=== PATIENT | female | born 2000 | race Caucasian/White ===

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

== ENCOUNTER 2021-01-09 10:08 | Day surgery (SDC) | payer OTHER, SELFPAY ==
[2020-08-18 09:47] VITALS: BMI 20.3
[2021-01-09] MEDS: Lactated Ringers 1,000 ML 100 ML IV (10:30)
[2021-01-09 10:36] VITALS: BP 138/85; PULSE 97; RESP 16; TEMP 37; O2SAT 100; BMI 20.5
--- NOTE | 2021-01-09 10:47 | HP_ITS ---
Intake Vital Signs 08/18/20 Height 5 ft 8 in 08/18/20 Weight: 130 lb 08/18/20 BMI 19.8 08/18/20 BP 124/86 H 08/18/20 Blood Pressure Location Lt brachial 08/18/20 Position Sitting 08/18/20 Respiration 16 Intake Visit Reasons: BIRADS 4 LEFT BREAST Chief Complaint: left breast mass Decay Control Operator Required: No Is patient in pain?: No Allergies hydrocodone Adverse Reaction (Intermediate, Verified 08/18/20 09:47) vomiting Medications desogestrel 0.15 mg-ethinyl estradiol 0.03 mg tablet 1 tab PO DAILY 04/11/19 [History Confirmed 08/18/20] PFSH Medical History Polycystic kidney disease (Acute) Surgical History [place] teeth extracted (Acute) Family History Mother Asthma Social History (Updated 08/18/20 @ 10:[address] Garcia Luke MD) pets and animals: Yes sexually active: Yes Smoking Status: Never smoker second hand exposure: No alcohol intake: never substance use type: does not use well-balanced diet: daily or most days frequency: 3-4 times per week seatbelt use: always HPI HPI HPI: AMADOU MOFFETT, is a 20 F who presents to the office today for HPI HPI HPI: AMADOU MOFFETT, is a 20 F who presents to the office today for left breast mass. The patient reports that 2 weeks ago she felt a mass in her left breast. She said it was tender but this has gotten better. She is on her period currently. She has not had any previous breast biopsies and has no immediate family history of breast cancer. No nipple discharge. ROS General General: No weight change or fatigue Breast Breast: Yes left breast lump, breast pain and abnormal US; no nipple discharge Cardio Cardiovascular: No murmur, pacemaker, heart disease, atrial fibrillation, high blood pressure, heart attack, heart stent, palpitations, shortness of breat with exertion or chest pain Psych Psychiatric: No depression or anxiety Resp Respiratory: No shortness of breath, No sleep apnea, No cough, No COPD, No asthma, No emphysema, No wheezing Gastro Gastrointestinal: No abdominal pain, No nausea or vomiting, No diarrhea, No constipation, No blood in stool, No acid reflux, No hemorrhoids, No ulcers, No gallbladder problem, No black,tarry stools Zackery Hematologic: No blood thinners Exam Const General: cooperative Orientation: alert, oriented x3 Chest Breast Palpation: No axillary lymphadenopathy, Yes breast mass lrb: Left, No nipple discharge Resp Effort & Inspection: normal respiratory effort Auscultation: clear to auscultation bilaterally Cardio Rate: regular rate Rhythm: regular rhythm Heart Sounds: no murmurs GI Inspection: non-distended Palpation: soft, nontender Office Procedures Biopsy Provider Documentation The left breast was prepped and draped in usual sterile fashion. Ultrasound was used to localize the mass and an area of the lateral breast was injected with local anesthetic and a small incision was made. A 14-gauge core needle was placed into the breast under direct ultrasound guidance and into the mass and several biopsies of the mass were obtained. Next a small clip was placed into the mass. A Steri-Strip was used to close the incision and a bandage was placed over this. Patient tolerated the procedure well. Biopsy Breast Biopsy: [id number] US Guidance Procedure Time Out Time Out Informed consent given: Yes Consent signed: Yes Time out checklist: patient, procedure, site marked/identified, positioning of patient, supplies available, allergies confirmed, team agrees on procedure Time out staff in room: Yes Time out verified: Yes Time out date: 08/18/20 Time out time: 09:45 Assessment & Plan Problems 1. Left breast mass N63.20 Plan Patient has left breast mass on ultrasound. I discussed the risks of bleeding and infection and then performed a bedside core needle biopsy in the office. Patient tolerated the procedure well and clip was placed. I will call the patient with pathology when it is available and if it is benign I plan on repeating imaging in 6 months. Garcia Luke MD Pager: [facility] [address] [place] [address], [address] [place] [address] Office: Orders Orders: Biopsy Today N63.20 Coding Level of Care Code Attention Roman Diagnoses Left breast mass N63.20 Additional Codes Biopsy - Breast Biopsy: 55543 US Guidance (35945)
[2021-01-09 11:35] LABS: Internal QC Validated? YES +Cl - CLEAR BKGD; Pregnancy, Urine Negative Negative
--- NOTE | 2021-01-09 11:46 | PCM.HP.STD ---
Problem List (1) Fibroadenoma of left breast Status: Acute (2) Breast pain, left Status: Acute History of Present Illness Date of Admission: 01/09/21 The patient is a 20 year old F who was been having left breast pain especially with menstrual cycles. She had found a mass about 6 months ago and a biopsy confirmed fibroadenoma. She says her last 6 months is becoming more more painful and she would like it removed. Past Medical History Medical History: Medical History (Last Reviewed 08/18/20 @ 09:45 by Karmen Wallace) Polycystic kidney disease Q61.3 Allergies hydrocodone Adverse Reaction (Intermediate, Verified 08/18/20 09:47) vomiting Home Medications: Ambulatory Orders Medication Instructions Recorded desogestrel 0.15 mg-ethinyl 1 tab PO DAILY 04/11/19 estradiol 0.03 mg tablet Multivitamin 1 ea PO DAILY 01/05/21 Surgical History: Surgical History (Last Reviewed 08/18/20 @ 09:45 by Karmen Wallace) [place] teeth extracted K08.409 Smoking Status: Never smoker Review of Systems Constitutional: Denies: Anorexia, Fever HEENT: Denies: Difficulty Swallowing Cardiovascular: Denies: Chest Pain Respiratory: Denies: Cough Gastrointestinal: Denies: Abdominal Pain Musculoskeletal: Reports: - - Breast pain in the left VTE Information - Inpt Only VTE Present on Admission: No VTE Mechan Device Prophylaxis: SCD's - Physical Exam Vitals/I&O's: Vital Signs Temp Pulse Resp BP Pulse Ox 98.6 F 97 16 138/85 H 100 01/09/21 10:36 01/09/21 10:36 01/09/21 10:36 01/09/21 10:36 01/09/21 10:36 Oxygen Delivery Method Room Air Weight: 134 lb 11.239 oz Body Mass Index (BMI) 20.5 General: Alert, Oriented x3 Neck: No JVD Abdomen: Soft, Non Tender, Non-Distended Musculoskeletal: - - Left breast mass lateral to the nipple Microbiology Past 72 Hours 01/08/21 10:00 Interface Orders SARS-CoV-2 Antigen (Rapid) - Final Laboratory Results 01/09/21 11:10: Urine Test Negative Current Medications Cefazolin Sodium 2 gm/ Sodium (Chloride) 110 mls @ 150 mls/hr IV PREOP ONE Stop: 01/09/21 13:33 Lactated Ringer's () 1,000 mls @ 100 mls/hr IV .Q10H DG Last Admin: 01/09/21 10:30 Dose: 100 mls/hr Documented by: Assessment/Plan All Active Problems (Last Reviewed 08/18/20 @ 09:45 by Karmen Wallace) Fibroadenoma of left breast (Acute) Breast pain, left (Acute) 20-year-old female with fibroadenoma of left breast with breast pain The patient has been having cyclical breast pain in the left breast where she has a biopsy-proven fibroadenoma. She would like this removed it is causing her a lot of discomfort. I discussed surgery with her and excision. I discussed the risks including but not limited to bleeding, infection, hematoma or breast disfiguration. Patient understands risks and willing to proceed. Garcia Luke MD Pager: [facility] [address] [place] [address], [address] [place] [address] Office:
[2021-01-09] MEDS: Cefazolin 2 GM in 0.9% Normal Saline 100 ML IV (12:05)
[2021-01-09] MEDS: Bupivacaine Mpf 0.5% 30 ML VIAL (12:33)
--- NOTE | 2021-01-09 12:43 | PCM.OPRPT ---
Problem List (1) Fibroadenoma of left breast Status: Acute (2) Breast pain, left Status: Acute Report of Operation Date of Procedure: 01/09/21 Pre-Operative Diagnosis: Left breast painful fibroadenoma Post-Operative Diagnosis: Same Surgery/Procedure Performed:: Excision of left breast mass Specimen's removed: Left breast mass Description of Procedure: Patient was brought back to the operating room and general anesthesia was induced. The left breast was prepped and draped in usual sterile fashion. Ultrasound was used to localize the mass and the area just overlying this mass was marked. An incision was made with a scalpel and deepened to the mass. The mass was excised using electrocautery dissection. The mass was sent for pathology. The cavity was irrigated and suctioned dry and hemostasis was obtained using electrocautery. The incision was injected with local anesthetic and closed with interrupted 3-0 Vicryl sutures as well as a running 4-0 Monocryl suture and glue. Patient tolerated the procedure was brought to PACU in stable condition. - Admit VTE Documentation VTE Mechan Device Prophylaxis: SCD's
--- NOTE | 2021-01-09 12:46 | PCM.DC.BS ---
Discharge Diet: No Restrictions Discharge Activity: May Not Drive - for 2-3 days or while taking narcotic pain meds. May shower in (days): 1 Lifting Restrictions: 10 pounds for 1 week. Call your doctor if your incision/area has: Continuous Slow Oozing, Sudden Increased Bleeding, Increased Pain/ Swelling, Increased Redness, Foul Smelling Discharge Call your doctor if you observe: Fever of 101 or Higher Suture Line Care: Avoid Pulling/Pushing, Avoid Pinching/Bending Cleanse incision/area with: Soap & Water Additional Dressing/Incision Instructions:: Remove bulky dressing tomorrow. May leave any opsite dressing for 3-4 days. Keep dressing in place until your follow-up appointment. Instructions: ED Chest Pain, Noncardiac Allergies/Adverse Reactions: Allergies hydrocodone Adverse Reaction (Intermediate, Verified 08/18/20 09:47) vomiting Medications to take at Discharge desogestrel 0.15 mg-ethinyl estradiol 0.03 mg tablet 1 tab PO DAILY 04/11/19 Multivitamin 1 ea PO DAILY 01/05/21 Oxycodone HCl/Acetaminophen [Percocet 5-325 mg Tablet] 1 tab PO Q6H PRN PRN 3 Days #10 tab 01/09/21 The following prescriptions were given: Oxycodone HCl/Acetaminophen [Percocet 5-325 mg Tablet] 1 tab PO Q6H PRN PRN 3 Days #10 tab PRN Reason: Pain Score 4-10/10 Transmission Status: Sent to [facility] Primary Care Physician: Margie Womack MD [Primary Care Provider] - Please Follow Up With: Garcia Luke MD When: Please call to schedule 2 week follow up appointment. [phone]
[2021-01-09 12:48] VITALS: BP 110/62; BP 138/85; PULSE 65; RESP 16; TEMP 36.5; O2SAT 100
--- NOTE | 2021-01-09 12:50 | BREAST_PTH ---
PATIENT: AMADOU MOFFETT LOC: [facility] [place] U#:[id number] AGE/SX: 20/F ROOM: RE01/09/[address]: Dr. Garcia Luke MD : 2000 BED: DIS: 01/09/2021 SPEC #: [id number] RECD: 01/09/21 12:56 STATUS: ANJELICA REQ #: [id number] ALBER: 01/09/21 12:[address]: Garcia Luke DEPT: SURGICAL PATHOLOGY RECD BY: Missy Faith ENTERED: 01/12/21 07:44 SP TYPE: BREAST OTHR DR: Dr. Margie Womack MD Tissues: Breast, NOS Procedures: Surgery Specimen Level IV HEADER OPERATION: Excision of fibroadenoma PRE-OP DIAGNOSIS: Fibroadenoma of left breast; left breast pain TISSUE SUBMITTED: Left breast fibroadenoma MICROSCOPIC DIAGNOSIS Left breast fibroadenoma, excision: Fibroadenoma. See comment. AM:rg 01/13/2021 COMMENT The lesion is completely excised in the planes examined. MICROSCOPIC DESCRIPTION Slides are reviewed. GROSS DESCRIPTION Received in fixative is one container labeled with the patient's name and designated left breast fibroadenoma. The specimen consists of a rubbery fragment of domínguez-white soft tissue measuring in aggregate 3.5 x 3 x 1.7 cm. The specimen is inked and serially sectioned to reveal homogenous light domínguez cut surfaces. The specimen is totally submitted in one cassette. / AM:samara 01/12/21 TC:1 CPT: 13666
[2021-01-09 13:00] VITALS: BP 122/81; BP 138/85; PULSE 66; RESP 16; O2SAT 100
[2021-01-09 13:15] VITALS: BP 110/74; BP 138/85; PULSE 61; RESP 16; O2SAT 100
[2021-01-09 13:30] VITALS: BP 113/83; BP 138/85; PULSE 66; RESP 16; TEMP 36.6; O2SAT 100
[2021-01-09 14:07] VITALS: BP 138/85
== END 2021-01-09 14:11 | disposition home or self-care (01) ==
LOC: SDC 10:09 → AC 10:09
PROVIDERS: Anesthesiology; PCP Family Medicine; Referring Provider Surgery; Visit Provider Surgery
PROC: (CPT 19083; principal; 2021-01-09 12:35)
DX: D24.2 Benign neoplasm of left breast (principal); Z20.822 Contact with and (suspected) exposure to COVID-19
CPT/HCPCS: 00400; 19120; 81025; 87426; 88305; C9803; J7120; J2405

== ENCOUNTER → 2021-04-20 10:40 | Outpatient (CLI) | payer OTHER, SELFPAY ==
[2021-04-20 11:32] LABS: Protein:Creat Ratio 203 mg/g CRE (0-200)
[2021-04-20 11:54] LABS: Anion Gap 6 (5-15); BUN 12 mg/dL (7-18); BUN/Creat Ratio 15.6 RATIO (10-20); Calcium,Total 9.3 mg/dL (8.5-10.1); Chloride 105 mmol/L (98-107); Creatinine, Serum 0.77 mg/dL (0.55-1.02); EST Glomerular Filtration Rate 102 mL/min (>60); Est Glom Filt Rate - Afr Amer 123 mL/min (>60); Glucose 80 mg/dL (74-106); Potassium 3.6 mmol/L (3.5-5.1); Sodium Level 137 mmol/L (136-145)
== END ==
PROVIDERS: PCP Family Medicine; Visit Provider Family Medicine
DX: Q61.3 Polycystic kidney, unspecified (principal)
CPT/HCPCS: 36415; 80048; 82570; 84156

== ENCOUNTER → 2021-11-18 11:18 | Outpatient (CLI) | payer OTHER, SELFPAY ==
[2021-11-18 12:54] LABS: Albumin, Serum 3.6 g/dL (3.2-5.0); BUN 9 mg/dL (7-18); Calcium,Total 9.1 mg/dL (8.5-10.1); Chloride 104 mmol/L (98-107); Creatinine, Serum 0.75 mg/dL (0.55-1.02); EST Glomerular Filtration Rate 104 mL/min (>60); Est Glom Filt Rate - Afr Amer 126 mL/min (>60); Glucose 84 mg/dL (74-106); Phosphorus 3.2 mg/dL (2.5-4.9); Potassium 3.7 mmol/L (3.5-5.1); Sodium Level 139 mmol/L (136-145)
== END ==
PROVIDERS: PCP Family Medicine; Visit Provider Internal Medicine Nephrology
DX: Q61.3 Polycystic kidney, unspecified (principal)
CPT/HCPCS: 36415; 80069

== ENCOUNTER 2021-11-25 17:22 | Emergency (ER) | payer OTHER, SELFPAY ==
[2021-11-25 17:22] VITALS: BP 128/106; PULSE 133; RESP 18; TEMP 36.2; O2SAT 100; BMI 21.2
--- NOTE | 2021-11-25 18:15 | CT_ITS ---
STUDY: CT Abdomen And Pelvis W/O Contrast Injection 11/25/2021 7:36 PM REASON FOR EXAM: Female, 21 years old. Technologist Notes POSSIBLE GI BLEED, COFFE GROUND EMISIS, HX PKD, FRIEDMAN Pain TECHNIQUE: Transaxial images were obtained without oral contrast, and without intravenous contrast. Individualized dose optimization techniques were used for this CT. COMPARISON: None. FINDINGS: The visualized lung bases are unremarkable. The visualized portions of the heart are within normal limits. Normal liver. Normal gallbladder and extrahepatic biliary system. Normal spleen. Normal pancreas. Normal bilateral adrenal glands. Non obstructive 1 to 2 mm right renal parenchymal stones. There are hypodensities in both kidneys. These are consistent for cysts. Due to their multiplicity space suggests polycystic kidney disease. Surveillance is recommended. Non obstructive 1 to 2 mm left renal parenchymal stones. Normal visualized stomach. Normal small intestine. Stool throughout the colon. There is non-visualization of the appendix. There are no acute findings of the abdominal aorta. Normal inferior vena cava. Subcentimeter mesenteric lymph nodes. Normal urinary bladder. Normal visualized uterus. There is an umbilical hernia containing fat. Normal osseous structures. IMPRESSION: (NOT LISTED IN ORDER OF SIGNIFICANCE) There are hypodensities in both kidneys. These are consistent for cysts. Due to their multiplicity space suggests polycystic kidney disease. Surveillance is recommended. Nonobstructive bilateral renal stones. Other findings as above. Electronically Signed: Brian Schulz MD at 19:39 EST , Service support , CT/Abdomen/Pelvis without Cont
--- NOTE | 2021-11-25 18:15 | EDS_ITS ---
HPI HPI - GI History of Present Illness Chief Complaint: GI Bleed Detail of Chief Complaint: Vomiting and diarrhea Informant: patient Narrative Narrative: Patient presents to the emergency department with vomiting and diarrhea that started around 5 AM. Patient states that she threw up 4 times total today and 3 of the times there was black-colored vomitus. Patient also has had 2 episodes of stools the first of which was loose and the second was watery. She denies black tarry stools. She denies blood in her stool. She denies sick contacts. Patient took a Covid test at home at noon today and it was negative. Patient has been vaccinated against Covid and has had her booster. She is also had her flu shot. Patient has history of pots and states that her heart rate today has been up to 150 where her normal resting heart rates about 115. Prior similar symptoms: No PFSH PFSH Medical History (Updated 11/25/21 @ 20:[address] Jordan Adair DO) Fibroadenoma of left breast Polycystic kidney disease Home Medications desogestrel 0.15 mg-ethinyl estradiol 0.03 mg tablet 1 tab PO DAILY 04/11/19 [History Last Taken 01/08/21] multivitamin 1 ea PO DAILY 01/05/21 [History Last Taken Unknown] lansoprazole [Prevacid] 30 mg PO DAILY #14 cap 11/25/21 [Rx Last Taken Unknown] ondansetron 4 mg PO Q8H PRN PRN #10 tab 11/25/21 [Rx Last Taken Unknown] Allergy/AdvReac Type Severity Reaction Status Date / Time hydrocodone AdvReac Intermediate vomiting Verified 11/25/21 17:25 Family History Mother Asthma Surgical History (Updated 01/26/21 @ 09:14 by Karmen Wallace) S/P breast biopsy, left [place] teeth extracted Social History (Updated 01/26/21 @ 10:[address] Garcia Luke MD) pets and animals: Yes sexually active: Yes Smoking Status: Never smoker second hand exposure: No alcohol intake: never substance use type: does not use well-balanced diet: daily or most days frequency: 3-4 times per week seatbelt use: always ROS ROS ED Constitutional Constitutional ED: Reports systems reviewed and no addt'l complaints, except as documented; Denies body ache(s), change in weight or chills Eyes Eyes: Denies acute decrease in peripheral vision, change in vision, double vision or loss of vision ENT ENT ED: Reports none; Denies ear pain, lip swelling, loss taste/smell, neck pain, otalgia or sore throat Cardiovascular Cardiovascular: Reports none; Denies abdominal pain, chest pain with activity, leg edema, lightheadedness, palpitations, rapid heart rate or syncope Respiratory/Chest Respiratory/Chest: Reports none; Denies change in mental status, dry cough, dyspnea, hemoptysis, shortness of breath at rest or shortness of breath with exertion Gastrointestinal Gastrointestinal: Reports none, abdominal pain, diarrhea, nausea, vomiting and other Details: Coffee ground emesis ; Denies change in stool character, hematemesis, hematochezia, melena or rectal bleeding Genitourinary Genitourinary ED: Reports none; Denies abdominal discomfort, anuria, dysuria, genital pain or polyuria Musculoskeletal Musculoskeletal: Reports none; Denies arthralgias, back pain, difficulty walking, extremity pain, muscle weakness or myalgias Integumentary Reports none; Denies abscess or rash Neurologic Neurologic: Reports none; Denies abnormal gait, confusion, focal weakness, frequent falls, headache(s), loss of vision, numbness, paresthesias, radicular pain, vertigo or weakness Psychiatric Psychiatric: Reports systems reviewed and no addt'l complaints, except as documented and none; Denies behavioral changes, confusion, difficulty concentrating, hallucinations, suicidal ideation, tactile hallucinations or visual hallucinations Endocrine Endocrinology: Denies none, cold intolerance, excessive sweating, fatigue or heat intolerance Hematologic/Lymphatic Hematologic/Lymphatic: Reports none; Denies anemia, easy bleeding or easy bruising Allergic/Immunologic Allergic/Immunologic ED: Denies as per HPI, none, lip swelling, mouth swelling, throat swelling, tongue swelling or hives EXAM Physical Exam Const Vital Signs: 11/25/21 17:22 11/25/21 18:52 Temperature 97.2 F L Temperature Source Temporal Pulse Rate 133 H Pulse Rate [Lying] 100 Pulse Rate [Sitting] 100 Pulse Rate [Standing] 130 H Respiratory Rate 18 Blood Pressure 128/106 H Blood Pressure [Lying] 123/82 H Blood Pressure [Sitting] 118/86 H Blood Pressure [Standing] 124/95 H Blood Pressure Mean 113 Blood Pressure Mean [Lying] 95 Blood Pressure Mean [Sitting] 96 Blood Pressure Mean [Standing] 104 Pulse Ox 100 Oxygen Delivery Method Room Air Positive well nourished and well developed General Appearance ED: well developed and NAD HEENT Reports TM's clear and moist mucous membranes normocephalic and atraumatic; Negative for trauma or tenderness Tympanic Membrane ED: Yes TM's clear Eyes PERRL and EOMs intact bilaterally General Eye ED: Negative for pale conjunctiva or scleral icterus Neck no lymphadenopathy, supple and no JVD General: Negative for tenderness Chest Wall inspection of chest normal and palpation of chest normal Chest: Negative for tenderness Resp normal respiratory effort and clear to auscultation bilaterally Effort and Inspection: Negative for respiratory distress or pain with movement Auscultation: Negative for rhonchi, wheezes or diminished lung sounds Cardio regular rate, regular rhythm, S1 normal heart sound, S2 normal heart sound and no murmurs Peripheral Pulses: pulses 2+ throughout GI normal to inspection, nondistended, normoactive bowel sounds, soft to palpation, non-distended and no masses GI Narrative: Mild diffuse tenderness on exam. There is no rebound, rigidity, or peritoneal signs. Back/Spine no CVA tenderness and no thoracic nor lumbar tenderness Extremity normal to inspection General Extremety ED: Negative for edema General Extremity: Negative for edema Neuro oriented x3, CN's II-XII intact bilaterally, no sensory deficits noted and gait normal Sensorium / Orientation: awake, alert, oriented to person, oriented to place and oriented to time Motor Exam: strength 5/5 throughout and strength abnormal Psych mental status grossly normal Skin no rashes or lesions noted and no wounds MDM MDM MDM Narrative Medical decision making narrative: IV line established. Patient given Protonix 80 mg IV bolus. Patient was given Zofran and her nausea resolved. She is had no further vomiting. Lab work-up was unremarkable. Her BUN was normal. CT scan of the pelvis showed polycystic kidney disease which she knows she has. No other significant abnormalities found on CT. Patient's orthostatic vital signs were negative. At this point I do not feel any further interventions indicated. I will send her home with a prescription for Zofran and Prevacid. Patient will be given referral to GI on-call Dr. Squires. She is advised to avoid NSAIDs. Patient to return if hematemesis, black tarry stools, severe abdominal pain, or condition should worsen anyway. Lab Data Attestation: I reviewed the patient's lab results. Labs: Laboratory Results - last 24 hr 11/25/21 11/25/21 11/25/21 18:30 18:30 18:30 WBC 10.2 RBC 5.57 H Hgb 15.4 H Hct 44.8 MCV 80.4 L MCH 27.6 MCHC 34.4 RDW Std Deviation 34.9 L RDW Coeff of Keri 11.9 Plt Count 204 MPV 10.7 Immature Gran % (Auto) 0.200 Neut % (Auto) 90.4 H Lymph % (Auto) 6.2 L Dougherty % (Auto) 2.9 Eos % (Auto) 0.1 Baso % (Auto) 0.2 Absolute Neuts (auto) 9.2 H Absolute Lymphs (auto) 0.63 L Nucleated RBC % 0 Sodium 137 Potassium 3.9 Chloride 105 Carbon Dioxide 21.0 Anion Gap 11 BUN 15 Creatinine 0.87 Estim Creat Clear Calc 103.41 Est GFR (MDRD) Af Amer 106 Est GFR (MDRD) Non-Af 88 BUN/Creatinine Ratio 17.2 Glucose 92 Calcium 9.9 Total Bilirubin 0.90 AST 23 ALT 30 Alkaline Phosphatase 69 Total Protein 8.3 H Albumin 3.9 Globulin 4.4 H Albumin/Globulin Ratio 0.9 Serum , Qual NEGATIVE Urine Color Urine Clarity Urine pH Ur Specific [place] Urine Protein Urine Glucose (UA) Urine Ketones Urine Occult Blood Urine Nitrite Urine Bilirubin Urine Urobilinogen Ur Leukocyte Esterase Urine RBC Urine WBC Ur Squamous Epith Cells Urine Bacteria Urine Mucus 11/25/21 19:00 WBC RBC Hgb Hct MCV MCH MCHC RDW Std Deviation RDW Coeff of Keri Plt Count MPV Immature Gran % (Auto) Neut % (Auto) Lymph % (Auto) Dougherty % (Auto) Eos % (Auto) Baso % (Auto) Absolute Neuts (auto) Absolute Lymphs (auto) Nucleated RBC % Sodium Potassium Chloride Carbon Dioxide Anion Gap BUN Creatinine Estim Creat Clear Calc Est GFR (MDRD) Af Amer Est GFR (MDRD) Non-Af BUN/Creatinine Ratio Glucose Calcium Total Bilirubin AST ALT Alkaline Phosphatase Total Protein Albumin Globulin Albumin/Globulin Ratio Serum , Qual Urine Color Yellow Urine Clarity Cloudy Urine pH 6.0 Ur Specific [place] 1.020 Urine Protein 30 H Urine Glucose (UA) Normal Urine Ketones 150 A* Urine Occult Blood Negative Urine Nitrite Negative Urine Bilirubin 1 H Urine Urobilinogen Normal Ur Leukocyte Esterase 100 H Urine RBC 0 SEEN Urine WBC 5-10 SEEN Ur Squamous Epith Cells 0-5 SEEN Urine Bacteria 1+ Urine Mucus 0 SEEN Radiography Diagnostic Testing: Clinical Impression(s) from Imaging Studies Abdomen/Pelvis CT 11/25/21 18:15 Discharge Plan Triage Chief Complaint: GI Bleed ED Provider: Jordan Adair Dx/Rx/DC Orders Clinical Impression: Viral gastroenteritis Instructions: Viral Gastroenteritis Prescriptions: New ondansetron [ondansetron] 4 MG tablet 4 mg PO Q8H PRN PRN (Reason: Nausea) Qty: 10 RF: 0 lansoprazole [Prevacid] 30 mg capsule,delayed release(DR/EC) 30 mg PO DAILY Qty: 14 RF: 0 No Action desogestrel-ethinyl estradiol [Apri] 0.15-0.03 mg tablet 1 tab PO DAILY RF: 0 multivitamin 1 EACH tablet 1 ea PO DAILY RF: 0 Primary Care Provider: Margie Womack Referrals: Margie Womack MD [Primary Care Provider] - Duc Squires DO [STAFF PHYSICIAN] - As Needed Disposition Disposition: Home, Self Care
[2021-11-25] MEDS: 0.9% Normal Saline 1,000 ML 1000 ML IV (18:29)
[2021-11-25] MEDS: Ondansetron 4 MG/2 ML Vial IV (18:29)
[2021-11-25 18:43] LABS: Absolute Lymphocyte Count 0.63 X10^3/uL (0.83-4.51); Absolute Neutrophil Count 9.2 X10^3/uL (2.0-7.7); Basophil# 0.02 X10^3/uL; Basophil% 0.2 % (0-1); Eosinophil# 0.01 X10^3/uL; Eosinophils% 0.1 % (0-5); Hematocrit 44.8 % (37-47); Hemoglobin 15.4 g/dL (12.0-15.0); Lymphocyte # 0.63 X10^3/ul (0.83-4.51); Lymphocyte % 6.2 % (19-41); Mean Corp Hgb Conc 34.4 g/dL (32-36); Mean Corpuscular Hgb 27.6 pg (27.0-32.0); Mean Corpuscular Volume 80.4 fL (81-99); Mean Platelet Vol. 10.7 fl (6.2-12.0); Monocyte% 2.9 % (0-10); NRBC Flagged by Analyzer 0 % (0-5); Neutrophil # 9.21 X10^3/uL (2.7-7.7); Neutrophil % 90.4 % (47-70); Platelet Count 204 K/mm3 (150-450); RBC Distribution Width CV 11.9 % (11.6-14.6); RBC Distribution Width SD 34.9 fl (35.1-43.9); Red Blood Count 5.57 M/mm3 (4.2-5.4); White Blood Count 10.2 K/mm3 (4.4-11.0)
[2021-11-25 18:47] LABS: Internal QC Validated? YES +Cl - CLEAR BKGD; Pregnancy, Serum, hCG Quali. NEGATIVE Negative
[2021-11-25 18:52] VITALS: BP 118/86; BP 123/82; BP 124/95; PULSE 100; PULSE 130
[2021-11-25 18:54] LABS: ALB/GLOB Ratio 0.9 RATIO (0.9-2.4); AST(SGOT) 23 U/L (15-37); Alanine Aminotransfer ALT/SGPT 30 U/L (13-56); Albumin, Serum 3.9 g/dL (3.2-5.0); Alkaline Phosphatase 69 U/L (45-117); Anion Gap 11 (5-15); BUN 15 mg/dL (7-18); BUN/Creat Ratio 17.2 RATIO (10-20); Calcium,Total 9.9 mg/dL (8.5-10.1); Chloride 105 mmol/L (98-107); Creatinine, Serum 0.87 mg/dL (0.55-1.02); EST Glomerular Filtration Rate 88 mL/min (>60); Est Glom Filt Rate - Afr Amer 106 mL/min (>60); Estimated Creatinine Clearance 103.41 ml/min; Globulin 4.4 g/dL (2.2-4.2); Glucose 92 mg/dL (74-106); Potassium 3.9 mmol/L (3.5-5.1); Protein, Total 8.3 g/dL (6.4-8.2); Sodium Level 137 mmol/L (136-145)
[2021-11-25 19:05] LABS: Mucous, Urine 0 SEEN /hpf (<or=2+); Red Blood Cells-Urine 0 SEEN /hpf (0-5)
[2021-11-25 19:06] LABS: Color, Urine Yellow (Yellow); Glucose, Dipstick Normal (Normal); Leukocyte Esterase-Dipstick 100 /ul (Negative); Nitrite-Dipstick Negative (Negative); Occult Blood-Urine Negative /ul (Negative); Protein-Dipstick 30 mg/dl (Negative); Urine Clarity Cloudy (Clear); Urine Urobilinogen Normal (Normal)
[2021-11-25 19:25] LABS: Ketone-Dipstick 150 mg/dl (Negative); Urine Bilirubin Dipstick 1 mg/dL (Negative)
[2021-11-25 19:28] LABS: Bacteria 1+ /hpf (None Seen); Squamous Epithelial Cells - UA 0-5 SEEN /hpf (5-10); White Blood Cells 5-10 SEEN /hpf (0-5)
== END 2021-11-25 20:38 | disposition home or self-care (01) ==
PROVIDERS: Emergency Provider Emergency Medicine; PCP Family Medicine
DX: A08.4 Viral intestinal infection, unspecified (principal); Q61.3 Polycystic kidney, unspecified
CPT/HCPCS: 74176; 80053; 81001; 84703; 85025; 96361; 96374; 96375; 99284; J7030; A4216; J2405; J3490

== ENCOUNTER 2021-12-29 09:07 | Outpatient (CLI) | payer OTHER, SELFPAY ==
--- NOTE | 2021-12-29 12:34 | PCM.TILTTABL ---
Summary Pre Test Resting HR: 96 Pre Test Resting BP: 134/82 Minimum Test HR: 72 Maximum Test HR: 142 Minimum Test BP: 123/67 Maximum Test BP: 156/81 Reason for Test Termination: Reached Maximum Test Time Physician Tilt Table Report Patient's Physicians Primary Care Physician: Margie Womack Indications/Diagnosis: Syncope Procedure Comments: The patient was brought to the noninvasive lab in the postabsorptive nonsedated state. Informed consent was obtained. The patient was then laid supine on the tilt table. The resting vitals were heart rate of 84 bpm and a blood pressure of 126/74 mmHg. The patient was then put in the 70 degree head upright tilt position. Continuous heart rate and blood pressure were monitored. Symptoms were also observed. Patient did not experience any significant symptomatology. The patient was then placed back in the recumbent position and administered 0.4 mg of sublingual nitroglycerin. She was then put back in the 70 degree head upright tilt position with initial heart rate of 110 bpm and increasing to a maximum 142 bpm. This happened within 2 minutes of getting in the upright position. The blood pressure remained elevated at 156/81 mmHg. Patient experienced symptoms of feeling funny and hands being clammy and breathing heavier. Patient was then put back in the recumbent position with improvement in the symptomatology. Summary: The above is likely suggestive of postural tachycardia syndrome POTS
[2021-12-29 12:39] VITALS: BP 123/67; BP 134/82; BP 156/81
== END 2021-12-29 23:59 | disposition short-term general hospital (02) ==
LOC: CVS 09:08
PROVIDERS: PCP Family Medicine; Referring Provider Internal Medicine Cardiovascular Disease; Visit Provider Internal Medicine Cardiovascular Disease
DX: R55 Syncope and collapse (principal)
CPT/HCPCS: 93660; J7040; A4216

== ENCOUNTER 2022-01-27 13:46 | Outpatient (CLI) | payer OTHER, SELFPAY ==
--- NOTE | 2022-01-27 13:54 | ECHOD_ITS ---
Reason For Study: SYNCOPE AND COLLAPSE Procedure This was a 2D Doppler, Color Flow transthoracic echocardiogram. Exam performed in department. Left Ventricle Normal LV size. Left ventricular systolic function is normal. The estimated ejection fraction is 60 %. No regional wall motion abnormalities noted. Right Ventricle Normal RV size. Normal systolic function. Atria Normal left atrium. Normal right atrium. Mitral Valve Normal mitral valve. Tricuspid Valve Normal tricuspid valve. Mild tricuspid valve insufficiency. Aortic Valve Normal aortic valve. Trisinus/trileaflet aortic valve. Pulmonic Valve Normal pulmonic valve. Great Vessels Normal aortic root. The pulmonary artery is normal size. Normal inferior vena cava. Pericardium/Pleural No pericardial effusion. MMode/2D Measurements & Calculations LVIDd: 4.3 cm IVSd: 0.82 cm Ao root diam: 2.9 cm LVIDs: 2.5 cm LVPWd: 0.80 cm RVDd: 2.8 cm FS: 41.9 % LAV(MOD-bp): 50.4 ml LA A4 area: 18.4 cm2 LA dimension(2D): 2.5 cm LAV(MOD-bp) Indexed: 28.3 ml/m2 LAV(MOD-sp2): 47.5 ml LAV(MOD-sp4): 48.7 ml RA A4 area: 12.5 cm2 Time Measurements MV dec time: 0.21 sec Doppler Measurements & Calculations MV E max carlton: 119.5 cm/sec Lat Peak E' Carlton: 16.6 cm/sec Med Peak E' Carlton: 15.2 cm/sec MV A max carlton: 65.6 cm/sec E/E' lat: 7.2 E/E' med: 7.8 MV E/A: 1.8 Ao V2 max: 131.7 cm/sec LV V1 max: 93.0 cm/sec PA V2 max: 119.6 cm/sec Ao max P.9 mmHg LV V1 max P.5 mmHg PI end-d carlton: 101.1 cm/sec TR max carlton: 199.2 cm/sec TR max P.9 mmHg ECHO/Echo Complete Interpretation Summary Normal LV size. Left ventricular systolic function is normal. The estimated ejection fraction is 60 %. Mild tricuspid valve insufficiency. Structurally normal valves. Ordering Physician: Isaías Nguyen Referring Physician: Margie Womack Performed By: Jumana Amaya RDCS, RVT
== END 2022-01-27 23:59 | disposition home or self-care (01) ==
PROVIDERS: PCP Family Medicine; Visit Provider Internal Medicine Cardiovascular Disease
DX: R55 Syncope and collapse (principal)
CPT/HCPCS: 93306

== ENCOUNTER → 2022-08-26 | Outpatient (CLI) | payer OTHER, SELFPAY ==
[2022-08-26 15:16] LABS: Bacteria 0 SEEN /hpf (None Seen); Red Blood Cells-Urine 0 SEEN /hpf (0-5); White Blood Cells 0 SEEN /hpf (0-5)
[2022-08-26 15:32] LABS: Color, Urine Yellow (Yellow); Glucose, Dipstick Normal (Normal); Ketone-Dipstick 5 mg/dl (Negative); Leukocyte Esterase-Dipstick 25 /ul (Negative); Nitrite-Dipstick Negative (Negative); Occult Blood-Urine Negative /ul (Negative); Protein-Dipstick 30 mg/dl (Negative); Specific Gravity, Urine 1.025 (1.002-1.030); Urine Clarity Clear (Clear); Urine Urobilinogen Normal (Normal)
[2022-08-26 15:37] LABS: Urine Bilirubin Dipstick 1 mg/dL (Negative)
[2022-08-26 15:39] LABS: Mucous, Urine 2+ /hpf (<or=2+); Squamous Epithelial Cells - UA 0-5 SEEN /hpf (5-10)
[2022-08-26 15:53] LABS: Protein, Urine (Random) 51.7 mg/dL (<11.9); Protein:Creat Ratio 119 mg/g CRE (0-200)
[2022-08-26 16:05] LABS: Albumin, Serum 3.8 g/dL (3.2-5.0); BUN 12 mg/dL (7-18); BUN/Creat Ratio 14.9 RATIO (10-20); Calcium,Total 9.8 mg/dL (8.5-10.1); Chloride 108 mmol/L (98-107); Creatinine, Serum 0.81 mg/dL (0.55-1.02); EST Glomerular Filtration Rate 95 mL/min (>60); Est Glom Filt Rate - Afr Amer 115 mL/min (>60); Glucose 97 mg/dL (74-106); Phosphorus 2.7 mg/dL (2.5-4.9); Sodium Level 140 mmol/L (136-145)
== END | disposition home or self-care (01) ==
LOC: LAB 15:11
PROVIDERS: PCP Family Medicine; Visit Provider Internal Medicine Nephrology
DX: Q61.3 Polycystic kidney, unspecified (principal)
CPT/HCPCS: 36415; 80069; 81001; 82570; 84156

== ENCOUNTER → 2022-08-30 | Outpatient (CLI) | payer OTHER, SELFPAY ==
[2022-08-30 17:33] LABS: Anion Gap 7 (5-15); BUN 8 mg/dL (7-18); BUN/Creat Ratio 11.1 RATIO (10-20); Calcium,Total 9.4 mg/dL (8.5-10.1); Chloride 107 mmol/L (98-107); Creatinine, Serum 0.72 mg/dL (0.55-1.02); EST Glomerular Filtration Rate 108 mL/min (>60); Est Glom Filt Rate - Afr Amer 131 mL/min (>60); Glucose 89 mg/dL (74-106); Potassium 3.5 mmol/L (3.5-5.1); Sodium Level 139 mmol/L (136-145); T4 Free Direct 1.08 ng/dL (0.76-1.46); Thyroid Stim Hormone (TSH) 1.29 uIU/mL (0.358-3.74)
== END | disposition home or self-care (01) ==
LOC: LAB 16:14
PROVIDERS: PCP Family Medicine; Visit Provider Nurse Practitioner Family
DX: I49.8 Other specified cardiac arrhythmias (principal); R00.0 Tachycardia, unspecified
CPT/HCPCS: 36415; 80048; 83735; 84439; 84443

== ENCOUNTER → 2022-08-31 | Outpatient (CLI) | payer OTHER, SELFPAY | END | disposition home or self-care (01) | LOC: LAB.FUTURE 17:00 | PROVIDERS: PCP Family Medicine; Visit Provider Internal Medicine Nephrology | DX: Q61.3 Polycystic kidney, unspecified (principal) ==

== ENCOUNTER → 2022-09-02 | Outpatient (CLI) | payer OTHER, SELFPAY ==
--- NOTE | 2022-09-02 12:27 | US_ITS ---
STUDY: ULTRASOUND BREAST - LEFT REASON FOR EXAM: Female, 22 years old. Pain in the left breast. TECHNIQUE: Axial and longitudinal images of the LEFT breast were performed with a high resolution ultrasound transducer. # OF IMAGES: 63 COMPARISON: None. FINDINGS: LEFT Breast: There is a 9 mm by 8 mm x 7 mm well-defined hypoechoic solid nodule at the 6 o''clock position breast at 5 cm from the nipple. The border of the nodule is slightly irregular. Increased vascularity. Biopsy recommended. US/Breast Limited Unilateral IMPRESSION: There is a 9 mm x 8 mm x 7 mm nodular density with slightly irregular borders at the 6 o''clock position of breast at 5 cm from nipple. Targeted biopsy is recommended. ASSESSMENT CATEGORY: BIRADS Category 4: Suspicious - Biopsy Should Be Considered. A letter regarding these results will be sent to the patient by the facility within 30 days. Electronically Signed: Alan Fulton MD at 13:49 EDT ,
== END | disposition home or self-care (01) ==
LOC: OPUS 12:20
PROVIDERS: PCP Family Medicine; Visit Provider Family Medicine
DX: N63.25 Unspecified lump in the left breast, overlapping quadrants (principal); N64.4 Mastodynia
CPT/HCPCS: 76642

== ENCOUNTER → 2022-09-07 | Outpatient (CLI) | payer OTHER, SELFPAY ==
[2022-09-02 12:24] LABS: Absolute Neutrophil Count 2.8 X10^3/uL (2.0-7.7); Basophil# 0.04 X10^3/uL; Basophil% 0.6 % (0-1); Eosinophil# 0.06 X10^3/uL; Eosinophils% 0.9 % (0-5); Hemoglobin 13.2 g/dL (12.0-15.0); Lymphocyte % 48.6 % (19-41); Mean Corpuscular Hgb 27.2 pg (27.0-32.0); Mean Corpuscular Volume 82.3 fL (81-99); Mean Platelet Vol. 10.7 fl (6.2-12.0); Monocyte# 0.52 X10^3/uL; Monocyte% 7.9 % (0-10); NRBC Flagged by Analyzer 0 % (0-5); Neutrophil # 2.76 X10^3/uL (2.7-7.7); Neutrophil % 41.8 % (47-70); Platelet Count 234 K/mm3 (150-450); RBC Distribution Width CV 12.7 % (11.6-14.6); RBC Distribution Width SD 38.5 fl (35.1-43.9); Red Blood Count 4.86 M/mm3 (4.2-5.4); White Blood Count 6.6 K/mm3 (4.4-11.0)
--- NOTE | 2022-09-07 13:15 | BRBX_PTH ---
PATIENT: AMADOU MOFFETT LOC: [facility] U#:[id number] AGE/SX: 22/F ROOM: RE09/07/[address]: CATHERINE Mendez : 2000 BED: DIS: 09/07/2022 SPEC #: [id number] RECD: 09/07/22 15:24 STATUS: ANJELICA REJagdish #: [id number] ALBER: 09/07/22 13:[address]: Garcia Luke DEPT: SURGICAL PATHOLOGY RECD BY: Vidya Guardado ENTERED: 09/08/22 09:31 SP TYPE: BREAST BX OTHR DR: DO Dr. Isaías Castellon MD Dr. Hannah Miedel, MD John H Roof, NP-C Tissues: Left breast, NOS Procedures: Surgery Specimen Level IV HEADER OPERATION: Left breast biopsy PRE-OP DIAGNOSIS: Left breast mass TISSUE SUBMITTED: Left breast tissue FIXATION TIME: 30.5 hours MICROSCOPIC DIAGNOSIS Left breast, core biopsy: Fibroadenoma. AM:samara 09/09/2022 MICROSCOPIC DESCRIPTION Slides are reviewed. GROSS DESCRIPTION Received in fixative is one container labeled with the patient's name and designated left breast. The specimen consists of multiple elongated fragments of domínguez-yellow fibroadipose tissue that in aggregate measure 2 x 0.5 x 0.1 cm. The entire specimen is submitted in one cassette. / SJ:samara 09/08/2022 TC:5 CPT: 79824
== END | disposition home or self-care (01) ==
PROVIDERS: PCP Family Medicine; Referring Provider Nurse Practitioner Family; Visit Provider Nurse Practitioner Family
DX: N63.20 Unspecified lump in the left breast, unspecified quadrant (principal); R00.0 Tachycardia, unspecified; R00.2 Palpitations; I49.8 Other specified cardiac arrhythmias
CPT/HCPCS: 36415; 85025; 88305; 93225; 93226

== ENCOUNTER 2022-09-15 10:14 | Day surgery (SDC) | payer OTHER, SELFPAY ==
[2022-09-15] VITALS (8 sets, daily range): BP systolic 87–125; BP diastolic 50–87; PULSE 69–83; RESP 16; TEMP 36.4–36.8; O2SAT 96–100; BMI 22.4
--- NOTE | 2022-09-15 | BRBX_PTH ---
PATIENT: AMADOU MOFFETT LOC: [facility] [place] U#:[id number] AGE/SX: 22/F ROOM: RE09/15/[address]: Dr. Garcia Luke MD : 2000 BED: DIS: 09/15/2022 SPEC #: [id number] RECD: 09/15/22 13:00 STATUS: ANJELICA VARGAS #: [id number] ALBER: 09/15/22 00:[address]: Garcia Luke DEPT: SURGICAL PATHOLOGY RECD BY: Bryce Chaudhary ENTERED: 09/15/22 13:00 SP TYPE: BREAST BX OTHR DR: Dr. Margie Womack MD Tissues: Left breast, NOS Procedures: Surgery Specimen Level V HEADER OPERATION: Ultrasound-guided wire localization, partial mastectomy PRE-OP DIAGNOSIS: Left breast mass TISSUE SUBMITTED: Left breast mass MICROSCOPIC DIAGNOSIS Left breast mass, partial mastectomy: Fibroadenoma. Mild duct ectasia. Focal intraductal hyperplasia without atypia. No evidence of malignancy. AM:samara 09/20/2022 COMMENT Reference is made to the patient's previous left breast core biopsy ([id number]) in which fibroadenoma was identified. MICROSCOPIC DESCRIPTION Slides are reviewed. GROSS DESCRIPTION Received in fixative is one container labeled with the patient's name and designated left breast. The specimen consists of an irregular fragment of unoriented domínguez-yellow fibrofatty tissue measuring 5 x 2.8 x 1.6 cm. A metallic wire is present in the specimen. The specimen is inked and serially sectioned to reveal yellow-white cut surfaces. No distinct mass lesion is identified. The specimen is totally submitted in seven cassettes after additional fixation. / AM:samara 09/16/2022 TC:1 CPT: 28982
--- NOTE | 2022-09-15 09:29 | PCM.HP.STD ---
HPI - General HPI Narrative AMADOU MOFFETT, is a 22 F who presents for excision of the left breast mass. Patient is having discomfort in this area and request this to be removed. Patient had biopsy last week which showed this is a fibroadenoma. [facility] Medical History (Updated 09/14/22 @ 08:40 by Sarah Daugherty) Alcohol use Autosomal dominant polycystic kidney disease Bilateral renal stones Breast pain Cardiology follow-up encounter Dermagraphy Elevated blood pressure reading without diagnosis of hypertension Fibroadenoma of left breast History of echocardiogram History of irregular heartbeat Hx of tilt table evaluation Hypertension Low iron Non-smoker POTS (postural orthostatic tachycardia syndrome) Syncope Tachycardia Wears contact lenses Home Medications desogestrel 0.15 mg-ethinyl estradiol 0.03 mg tablet (Apri) 1 tab PO DAILY 04/11/19 [History Last Taken 01/08/21] multivitamin 1 tab PO DAILY 02/09/22 [History Last Taken Unknown] propranolol 20 mg tablet 20 mg PO DAILY #30 tabs 02/09/22 [Rx Last Taken Unknown] cetirizine 10 mg capsule (Zyrtec) 10 mg PO DAILY 08/30/22 [History Last Taken Unknown] Allergy/AdvReac Type Severity Reaction Status Date / Time hydrocodone AdvReac Intermediate vomiting Verified 09/14/22 08:24 Family History Mother Asthma Polycystic kidney disease Grandfather Polycystic kidney disease maternal w/ ESRD Surgical History (Updated 09/14/22 @ 08:40 by Sarah Daugherty) History of left breast biopsy Hx of breast biopsy Hx of mastectomy [place] teeth extracted Social History pets and animals: Yes sexually active: Yes Smoking Status: Never smoker second hand exposure: No alcohol intake: current alcohol intake frequency: a few times a week substance use type: does not use well-balanced diet: daily or most days caffeine: Yes (once per week energy drink) frequency: 3-4 times per week seatbelt use: always Physical Exam Const alert and oriented x3 Resp normal respiratory effort and normal air movement Cardio regular rate and regular rhythm GI soft to palpation, non-tender and non-distended Assessment & Plan Assessment/Plan (1) Left breast mass: QUALIFIERS: Breast mass location: lower outer quadrant Qualified Code(s): N63.23 - Unspecified lump in the left breast, lower outer quadrant PLAN: Patient is a small fibroadenoma of the lower left breast. It is causing her discomfort and she would like this removed. I discussed ultrasound-guided wire localization with her as well as removal of this mass. I discussed the risk of the procedure with her such as bleeding, infection, hematoma formation, recurrence of fibroadenoma. I also discussed with her the possibility of malignant, need for further margins. Patient understands all the risks and is willing to proceed with excision of this fibroadenoma. Garcia Luke MD Pager: [facility] [address] [place] [address], [address] [place] [address] Office:
[2022-09-15 10:45] LABS: Internal QC Validated? YES +Cl - CLEAR BKGD; Pregnancy, Urine Negative Negative
[2022-09-15] MEDS: Lactated Ringers 1,000 ML 15 ML IV (10:55)
[2022-09-15] MEDS: Cefazolin 2 GM in 0.9% Normal Saline 100 ML IV (12:09)
[2022-09-15] MEDS: Bupivacaine 0.25% 30 ML Vial (12:13)
--- NOTE | 2022-09-15 12:32 | BI_ITS ---
SURGICAL BREAST SPECIMEN RADIOGRAPH CLINICAL: Document presence of tissue clip marker in biopsy specimen. FINDINGS: Specimen shows presence of tissue clip marker. Pathology is pending and an addendum to the biopsy report will be performed after the final pathologic diagnosis is rendered. Electronically Signed: Ariel Acosta MD at 12:41 EDT , BI/Breast Biopsy Specimen IMPRESSION: undefined
--- NOTE | 2022-09-15 12:45 | PCM.OPRPT ---
Report of Operation Date of Procedure: 09/15/22 Pre-Operative Diagnosis: Painful left breast fibroadenoma Post-Operative Diagnosis: Same Surgery/Procedure Performed:: 1. Ultrasound-guided wire localization 2. Left partial mastectomy Specimen's removed: Left breast mass Description of Procedure: The left breast was prepped and draped in usual sterile fashion ultrasound was used to localize the mass. Through the biopsy site a wire was placed into the mass under ultrasound visualization. Next the breast was reprepped and draped and an incision was marked inferior to the nipple. This was injected with local anesthetic and then incised with a scalpel. Electrocautery was used to dissect flaps superiorly and inferiorly and then the wire was brought into the incision. The wire was traced to the mass which was grasped with an Allis clamp and then circumferentially dissected using electrocautery. Mass was removed and sent for mammography mammography did confirm clip and the complete wire. Next the cavity was irrigated and suctioned dry and hemostasis was obtained using electrocautery. The incision was closed with interrupted 3-0 Vicryl sutures and a running 4-0 Monocryl suture. Dermabond glue was applied. Patient was then woken and taken to PACU in stable condition tolerated the procedure well. Admit VTE Documentation VTE Mechan Device Prophylaxis: SCD's
--- NOTE | 2022-09-15 12:49 | DCINST_ITS ---
Discharge Instructions Procedure Breast Surgery Diet Discharge Diet: No restrictions Activity Discharge Activity: May Not Drive (while taking narcotic pain medications.) and May Shower (tomorrow) Lifting Restrictions: May return to light duty tomorrow, no lifting over 15 lbs for 1 week Dressing / Incision Call your doctor if your incision/area has: Continuous Slow Oozing, Sudden Increased Bleeding, Increased Pain/ Swelling, Increased Redness, Foul Smelling Discharge and Swelling at the incision site Call your doctor if you observe: Fever of 101 or Higher Suture Line Care: Avoid Pulling/Pushing and Avoid Pinching/Bending Cleanse incision/area with: Soap & Water Follow Up Care Please Follow Up With: Garcia Luke MD When: Please call to schedule 2 week follow up appointment. [phone] Test Results: Test results from this visit will be discussed in further detail at your follow- up appointment, if applicable. Discharge Plan Admission Attending Provider: Garcia Luke Primary Care Provider: Margie Womack Discharge Orders/Prescriptions Prescriptions: New acetaminophen [Tylenol] 325 mg Tablet 650 mg PO Q4H PRN PRN (Reason: Pain Or Fever) Qty: 0 0RF oxycodone 5 mg Tablet 5 - 10 mg PO Q4H PRN PRN (Reason: Pain Score 4-10/10) 5 Days Qty: 20 0RF No Action desogestrel-ethinyl estradiol [Apri] 0.15-0.03 mg tablet 1 tab PO DAILY Zyrtec 10 mg capsule 10 mg PO DAILY multivitamin Tablet 1 tab PO DAILY propranolol 20 mg tablet 20 mg PO DAILY Qty: 30 11RF Referrals / Follow Up: Margie Wmoack MD [Primary Care Provider] - Disposition Disposition (needs filled in before D/C Order can be placed): Home, Self Care
== END 2022-09-15 14:32 | disposition home or self-care (01) ==
LOC: SDC 10:16 → AC 10:17
PROVIDERS: Anesthesiology; PCP Family Medicine; Referring Provider Surgery; Visit Provider Surgery
PROC: (CPT 19301; principal; 2022-09-15 11:45)
DX: D24.2 Benign neoplasm of left breast (principal); N60.42 Mammary duct ectasia of left breast; I10 Essential (primary) hypertension; G90.A Postural orthostatic tachycardia syndrome [POTS]; Q61.3 Polycystic kidney, unspecified; Z79.899 Other long term (current) drug therapy
CPT/HCPCS: 19301; 19285; 00404; 76098; 81025; 88305; 88307; J7120; J2405

== ENCOUNTER → 2023-09-23 | Outpatient (CLI) | payer OTHER, SELFPAY ==
--- NOTE | 2023-09-23 14:22 | US_ITS ---
INDICATION: HX OF FIBROADENOMA-PAIN EXAMINATION: Ultrasound RIGHT US Breast Unilateral Limited TECHNIQUE: Routine villagomez scale and color-doppler imaging was performed of the bilateral breasts. COMPARISON: None. FINDINGS: Four quadrant evaluation was performed including the axilla and retroareolar nipple regions. There are no solid or cystic lesions identified. There is no sonographic architectural distortion. US/Breast Limited Unilateral IMPRESSION: Ultrasound of the upper outer quadrant and upper outer quadrant is performed. Left breast ultrasound is normal. Right breast ultrasound demonstrates hypoechoic nodule 1:00 position 1 cm from the nipple. This measures 1.1 x 0.8 x 0.5 cm. ASSESSMENT CATEGORY: BI-RADS Category 0 incomplete FOLLOW UP RECOMMENDATION: Bilateral diagnostic mammogram. NOTES: 7-10% of cancers are not identified by mammography. Any palpable finding should be evaluated independently of this report. Guidelines for Early Breast Cancer Detection: * Annual breast examination by a physician or other health care provider. * Monthly breast self-examination. * Annual mammography screening beginning at age 40 and continuing for as long as a woman is in good health. * Women at increased risk (e.g., family history, genetic tendency, past breast cancer) should talk with their doctors about the benefits and limitations of starting mammography screening earlier, having additional tests (e.g., breast ultrasound or MRI) or having more frequent exams. Screening MRI is recommended for women with an approximately 20-25% or greater lifetime risk of breast cancer, including women with a strong family history of breast or ovarian cancer and women who were treated for Hodgkin''''s disease. Electronically Signed: Que Thomas MD at 10:01 EDT ,
== END | disposition home or self-care (01) ==
LOC: OPUS 14:20
PROVIDERS: PCP Family Medicine; Referring Provider Family Medicine; Visit Provider Family Medicine
DX: D24.1 Benign neoplasm of right breast (principal)
CPT/HCPCS: 76641; 76642

== ENCOUNTER → 2023-10-07 | Outpatient (CLI) | payer OTHER, SELFPAY | END | disposition home or self-care (01) | PROVIDERS: PCP Family Medicine; Referring Provider Family Medicine; Visit Provider Family Medicine | DX: Z12.4 Encounter for screening for malignant neoplasm of cervix (principal); Z11.3 Encounter for screening for infections with a predominantly sexual mode of transmission ==

== ENCOUNTER → 2023-10-21 | Outpatient (CLI) | payer OTHER, SELFPAY ==
--- NOTE | 2023-10-21 14:27 | BI_ITS ---
MAMMOGRAPHY - BILATERAL DIAGNOSTIC REASON FOR EXAM: Female, 23 years old. Right breast nodule PERTINENT HISTORY: Non-contributory. TECHNIQUE: Digital examination. Mediolateral oblique (MLO) and craniocaudad (CC) views of both breasts were obtained, along with 3-D tomosynthesis CAD: CAD was performed on this study. COMPARISON: Ultrasound from 09/23/2023 FINDINGS: Breast Composition: The breasts are heterogeneously dense, which may obscure small masses. There are no dominant masses or suspicious calcifications. No other significant abnormalities are identified. BI/DIAG MAMM W/CAD, BILAT IMPRESSION: Negative diagnostic mammogram. Patient can return for screening mammogram at the appropriate time ASSESSMENT CATEGORY: BIRADS Category 2: Benign. A letter regarding these results will be sent to the patient by the facility within 30 days. FOLLOW UP RECOMMENDATION: Begin screening mammograms at 40 years of age. (N) Approximately 10% of breast cancers are not detected by mammography. A normal mammogram should not delay biopsy of a clinically suspicious abnormality. Electronically Signed: Ariel Acosta MD at 15:32 EST ,
== END | disposition home or self-care (01) ==
LOC: OPBI 14:21
PROVIDERS: PCP Family Medicine; Referring Provider Family Medicine; Visit Provider Family Medicine
DX: R92.8 Other abnormal and inconclusive findings on diagnostic imaging of breast (principal)
CPT/HCPCS: 77062; 77066; G0279

== ENCOUNTER → 2025-08-26 | Outpatient (CLI) | payer OTHER, SELFPAY ==
--- OUTSIDE RECORDS SUMMARY | 2025-03-01 07:41 | XMS RPT_ITS ---
Author Name Auto Generated Organization [facility] Care Team Providers Care Compliance Review Specialist Name Role Phone CLAIRE MULLIGAN Attending Unavailable CLAIRE MULLIGAN Referring Unavailable MIHAI II II, NIXON Referring Unavailabl e MIHAI II II, NIXON Attending Unavailabl e PROBLEMS No Problem Records Found PROCEDURES No Procedure Records Found RESULTS URINE MACROSCOPIC Collected: 7:52 AM Status: F Source: [facility] TYPE CODE TESTS RESULT OUT OF RANGE REFERENCE UNITS LAB UCOL URINE COLOR YELLOW YELLOW LAB [facility] URINE CLARITY CLEAR CLEAR LAB [facility] URINE SPEC GRAVITY >1.030 High 1.010-1.025 LAB UPH URINE PH 6.0 5.0-7.0 LAB AUTP URINE TOTAL PROTEIN 30 Abnormal NEGATIVE mg/dl LAB UGL URINE GLUCOSE NEGATIVE NEGATIVE mg/dl LAB UKET URINE KETONE NEGATIVE NEGATIVE mg/dl LAB UBIL URINE BILIRUBIN NEGATIVE NEGATIVE LAB GB URINE HEMOGLOBIN NEGATIVE NEGATIVE LAB UNIT URINE NITRATES NEGATIVE NEGATIVE LAB UROB URINE UROBILINOGEN 0.2 0.2-1.0 E.U./dL LAB ULEUK URINE LEUKOTEST NEGATIVE NEGATIVE Performed By: #### UMIC, KAMINI R, UMAC #### Testing performed at [facility] [address] [place] [address] URINE MICROSCOPIC Collected: 03/01/2025 7:52 AM Stat us: F Source: [facility] TYPE CODE TESTS RESULT OUT OF RANGE REFERENCE UNITS LAB UWBC URINE WBC'S NEGATIVE NEGATIVE /HPF LAB URBC URINE RBC'S NEGATIVE NEGATIVE /HPF LAB EPI EPITHELIAL CELLS 5 TO 10 /HPF LAB MUCUS MUCUS 4+ Abnormal NEGATIVE LAB BACT BACTERIA TRACE Abnormal NEGATIVE LAB TYRESE CRYSTAL NONE NONE LAB CASTS CASTS NONE NONE /LPF LAB UCOM URINE COMMENT CULTURE CRITERIA NOT MET, NO CULTURE PERFORMED. Performed By: #### UMIC, KAMINI R, UMAC #### Testing performed at [address] [address] URINE SODIUM RANDOM Collected: 03/01/2025 7:[address] atus: F Source: [facility] TYPE CODE TESTS RESULT OUT OF RANGE REFERENCE UNITS LAB UNAR URINE SODIUM RANDOM 191 High 30-90 MMOL/L Performed By: #### UMIC, KAMINI R, UMAC #### Testing performed at [address] [address] PROTEIN CREATININE RATIO Collected: 03/01/2025 7:52 A M Status: F Source: [facility] TYPE CODE TESTS RESULT OUT OF RANGE REFERENCE UNITS LAB UTPR URINE TP RANDOM 10 0-12 MG/DL LAB UCRR URINE CREATININE RANDOM 320.1 MG/DL Result Comment: NO NORMAL VA LUES ESTABLISHED FOR RANDOM SPECIMENS LAB PCR1 PROTEIN CREATININE RATIO 0.0 Result Comment: REFERENCE RANGES <0.2 NORMAL 0.2-3.5 NON-NEPHROTIC >3.5 NEPHROTIC Performed By: #### PCR #### Testing performed at [address] [address] CBC Collected: 03/01/2025 7:49 AM Status: F Source: [facility] TYPE CODE TESTS RESULT OUT OF RANGE REFERENCE UNITS LAB WBC WBC COUNT 9.9 3.6-11.0 10*3/uL LAB RBC RBC COUNT 4.79 4.0-5.4 10*6/uL LAB HGB HEMOGLOBIN 13.1 12.0-16.0 G/DL LAB HCT HEMATOCRIT 38.8 36.0-48.0 % LAB MCV MCV 81.2 80.0-100.0 FL LAB MCH MCH 27.4 26.0-35.0 PG LAB MCHC MCHC 33.7 27.0-37.0 G/DL LAB RDW RDW 13.2 11.5-14.5 % LAB PLTC PLATELET COUNT 226 130-400 10*3/uL LAB MPV MPV 9.7 7.4-11.0 FL LAB DTYPE DTYPE AUTO DIFF % LAB NEUT NEUTROPHIL 55.5 37.0-75.0 % LAB ALYMP LYMPHOCYTE 35.9 20.0-55.0 % LAB AOMONO MONOCYTE 7.4 0.0-10.0 % LAB EOS EOSINOPHIL 0.5 0.0-11.0 % LAB BASO BASOPHIL 0.7 0.0-2.0 % LAB ANC ABSOLUTE NEUTROPHIL COUNT 5.5 1.4-6.5 10*3/uL LAB ALYM ABSOLUTE LYMPHOCYTE 3.6 High 1.2-3.4 10*3/uL LAB AMONO ABSOLUTE MONOCYTE 0.7 0.0-0.7 10*3/uL LAB AEO ABSOLUTE EOS 0.0 0.0-0.7 10*3/uL LAB ABAS ABSOLUTE BAS 0.1 0.0-0.2 10*3/uL Performed By: #### ACBCEULOGIO #### Testing performed at [facility] [address] [place] [address] RENAL PANEL,FASTING Collected: 03/01/2025 7:[address] atus: F Source: [facility] TYPE CODE TESTS RESULT OUT OF RANGE REFERENCE UNITS LAB GLF GLUCOSE FASTING 86 70-100 MG/DL Result Comment: NORMAL <100 mg/dL PREDIABETES 101-126 mg/dL DIABETES 126 mg/dL or higher LAB BUN BLOOD UREA NITROGEN 11 7-20 MG/DL LAB CRET CREATININE SERUM 0.72 0.70-1.20 MG/DL LAB NA SODIUM 141 137-145 MMOL/L LAB K POTASSIUM 3.2 Low 3.5-5.1 MMOL/L LAB CL CHLORIDE 103 98-107 MMOL/L Result Comment: Please note: Triglyceride levels of 600mg/dL or higher may positively bias chloride results by approximately 2.1 mmol LAB CO2 CO2 26 22-30 MMOL/L LAB ALB ALBUMIN 4.5 3.5-5.0 G/dl LAB CA CALCIUM 9.3 8.4-10.2 MG/DL LAB PHOS PHOSPHOROUS 3.6 2.5-4.5 MG/DL LAB GFR EST. GFR,Non 107 ml/min/1 .73sq.m LAB GFRB EST. GFR, 129 ml/min/1 .73sq.m LAB GFRCOM GFR Information Average GFR for 18-29 years old = 116. Result Comment: Chronic Kidn ey disease, GFR = <60. Kidney failure, GFR = <15. The GFR estimate is not adjusted for extreme body surface area or acute process, nor has it been validated for women or ethnic groups other than and . Performed By: #### ACEULOGIO BURNETT #### Testing performed at [facility] [address] [place] [address] ALLERGIES No Allergies Records Found ENCOUNTERS ADMIT/DISCHARGE ACCOUNT NUMBER ADMITTING ENCOUNTER CLASS LOC ATION SOURCE 03/01/2025 [id number] [facility] [place] [address] 02/21/2025 [id number] [facility] [place] [address] PAYERS ENCOUNTER GUARANTOR PAYER SUBSCRIBER SOURCE 03/01/2025 AMADOU HOLLOWAYB: [id number], [place] [address]Sbd: () Primary Insurance:[employer] Number: [id number] Date:[id number] Name:MANAGED CARE AMADOU MOFFETTDOB: [id number], [place] [address]Ftj: () [facility] 02/21/2025 AMADOU MOFFETTDOB: [id number] [address], [place] [address]Dhf: () Primary Insurance:[employer] Number: [id number] Date:3483-32-28Wsny Name:MANAGED CARE AMADOU HOLLOWAYB: [id number], [place] [address]Cnq: () [facility]
--- OUTSIDE RECORDS SUMMARY | 2025-03-01 07:41 | XMS RPT_ITS ---
Author Name Auto Generated Organization [facility] Care Team Providers Care Tank Car Cleaner Name Role Phone CLAIRE MULLIGAN Attending Unavailable CLAIRE MULLIGAN Referring Unavailable MIHAI II II, NIXON Referring Unavailabl e MIHAI II II, NIXON Attending Unavailabl e PROBLEMS No Problem Records Found PROCEDURES No Procedure Records Found RESULTS URINE MACROSCOPIC Collected: 7:52 AM Status: F Source: [facility] TYPE CODE TESTS RESULT OUT OF RANGE [...] KAMINI R, UMAC #### Testing performed at [facility] [address] [place] [address] URINE MICROSCOPIC Collected: 03/01/2025 7:52 AM Stat us: F Source: [facility] TYPE CODE TESTS RESULT OUT OF RANGE [...] KAMINI R, UMAC #### Testing performed at [address] [address] URINE SODIUM RANDOM Collected: 03/01/2025 7:[address] atus: F Source: [facility] TYPE CODE TESTS RESULT OUT OF RANGE REFERENCE UNITS LAB UNAR URINE SODIUM RANDOM 191 High 30-90 MMOL/L Performed By: #### UMIC, KAMINI R, UMAC #### Testing performed at [address] [address] PROTEIN CREATININE RATIO Collected: 03/01/2025 7:52 A M Status: F Source: [facility] TYPE CODE TESTS RESULT OUT OF RANGE REFERENCE UNITS LAB UTPR URINE TP RANDOM 10 0-12 MG/DL LAB UCRR URINE CREATININE RANDOM 320.1 MG/DL Result Comment: NO NORMAL VA LUES ESTABLISHED FOR RANDOM SPECIMENS LAB PCR1 PROTEIN CREATININE RATIO 0.0 Result Comment: REFERENCE RANGES <0.2 NORMAL 0.2-3.5 NON-NEPHROTIC >3.5 NEPHROTIC Performed By: #### PCR #### Testing performed at [address] [address] CBC Collected: 03/01/2025 7:49 AM Status: F Source: [facility] TYPE CODE TESTS RESULT OUT OF RANGE [...] By: #### ACBCEULOGIO #### Testing performed at [facility] [address] [place] [address] RENAL PANEL,FASTING Collected: 03/01/2025 7:[address] atus: F Source: [facility] TYPE CODE TESTS RESULT OUT OF RANGE [...] #### ACEULOGIO BURNETT #### Testing performed at [facility] [address] [place] [address] ALLERGIES No Allergies Records Found ENCOUNTERS ADMIT/DISCHARGE ACCOUNT NUMBER ADMITTING ENCOUNTER CLASS LOC ATION SOURCE 03/01/2025 [id number] [facility] [place] [address] 02/21/2025 [id number] [facility] [place] [address] PAYERS ENCOUNTER GUARANTOR PAYER SUBSCRIBER SOURCE 03/01/2025 AMADOU HOLLOWAYB: [id number] [address], [place] [address]Qjk: () Primary Insurance:[employer] Number: [id number] Date:9530-44-43Oduf Name:MANAGED CARE AMADOU MOFFETTDOB: [id number], [place] [address]Sds: () [facility] 02/21/2025 AMADOU MOFFETTDOB: [id number] [facility] [address], [place] [address]Rrp: () Primary Insurance:[employer] Number: [id number] Date:9185-16-39Rrtb Name:MANAGED CARE AMADOU HOLLOWAYB: [id number], [place] [address]Mlx: () [facility]
[2025-08-26 12:16] LABS: Hematocrit 39.3 % (37-47); Hemoglobin 12.9 g/dL (12.0-15.0); Immature Granulocytes Count 0.000 X10^3/uL (0.0-0.0); Mean Corp Hgb Conc 32.8 g/dL (32-36); Mean Corpuscular Volume 81.5 fL (81-99); Mean Platelet Vol. 11.0 fl (6.2-12.0); NRBC Flagged by Analyzer 0 % (0-5); Platelet Count 243 K/mm3 (150-450); RBC Distribution Width CV 12.4 % (11.6-14.6); RBC Distribution Width SD 36.8 fl (35.1-43.9); Red Blood Count 4.82 M/mm3 (4.2-5.4); White Blood Count 6.2 K/mm3 (4.4-11.0)
[2025-08-26 13:12] LABS: Creatinine, Urine (random) 293.00 mg/dL (28.00-217.00); Protein, Urine (Random) 25.9 mg/dL (0.0-12.0); Protein:Creat Ratio 88 mg/g CRE (0-200)
[2025-08-26 13:48] LABS: Albumin, Serum 4.3 g/dL (3.5-5.0); Anion Gap 13 (5-15); BUN 11 mg/dL (4-19); BUN/Creat Ratio 13.7 RATIO (10-20); Calcium,Total 9.4 mg/dL (7.6-11.0); Carbon Dioxide 22.3 mmol/L (21.0-32.0); Chloride 105 mmol/L (98-108); Glucose 84 mg/dL (70-99); Potassium 3.8 mmol/L (3.3-5.1)
== END | disposition home or self-care (01) ==
LOC: LAB 11:16
PROVIDERS: PCP Family Medicine; Visit Provider Family Medicine
DX: Q61.3 Polycystic kidney, unspecified (principal)
CPT/HCPCS: 36415; 80069; 82570; 84156; 85025

== ENCOUNTER → 2025-09-30 | Outpatient (CLI) | payer OTHER, SELFPAY | END | disposition home or self-care (01) | PROVIDERS: PCP Family Medicine; Referring Provider Physician Assistant Medical; Visit Provider Physician Assistant Medical | DX: R01.1 Cardiac murmur, unspecified (principal) | CPT/HCPCS: 93306 ==